=== PATIENT | female | born 1940 | race Caucasian/White ===

== ENCOUNTER 2016-11-07 04:52 | Inpatient (IN) | payer MEDICARE ==
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
--- NOTE | ~2016-11-07 | DS ---
Discharge Summary [facility] [address] [place]. [address] NAME: MARINA CAROLINA : 36 STATUS : DIS IN PAT#: [id number] AGE: 75 ADM/REG DATE : 11/07/16 MR#: [id number] REPORT SERV DATE: 11/19/16 DICTATED BY: MICHELLEMARINA Asif DATE: 11/19/16 REPORT STATUS : Draft TRANSCRIBED BY: MODL DATE: 11/19/16 Data Collection from hospitalization DISCHARGE DIAGNOSES: 1. Influenza A. 2. Probable pneumonia. 3. Reactive airway disease. 4. Hypertension. 5. Hypothyroidism. 6. Sleep apnea. 7. Fibromyalgia. 8. Obesity. 9. Mild hyponatremia. 10.History of skin cancer. CONSULTATION: None. PROCEDURES: CT scan of the brain without contrast, 11/07/2016. DISCHARGE MEDICATIONS: Norvasc 5 mg daily, Wellbutrin XL 300 mg at bedtime, Prozac 40 mg at bedtime, Synthroid 150 mcg daily, Prinivil 10 mg daily, Claritin 10 mg daily, Mag-Ox 400 mg daily, Lyrica 300 mg at bedtime, levofloxacin as instructed, Proventil 3 mL via inhaler every 4 hours as instructed, Tylenol 650 mg as needed, liquid tears 1 drop 3 times a day as needed, Robitussin 10 mL every 4 hours as needed, Proventil 3 mL via inhaler every 2 hours as needed, Advil 400 mg every 6 hours as needed, glucosamine 1 tablet daily, vitamin D one tablet daily, fish oil 1200 mg daily, Artificial Tears 1 drop three times a day as needed, ICaps one tablet at bedtime. Zanaflex 4 mg twice a day, Ambien 10 mg at bedtime, Tussin DM 10 mL every 6 hours as needed, face cream 1 application topically at bedtime as instructed, prednisone taper 30 mg for 1 day, then 20 mg for 2 days, then 10 mg for 3 days, then discontinue. CONDITION AT DISCHARGE: Stable. DISPOSITION: The patient was discharged to [facility] on a regular diet with activities as instructed. HOSPITAL COURSE: This is a 75-year-old female who was brought to the emergency room by EMS on the morning of this admission for frequent falls and pain in the back and shoulders as well as a fever. She suggested that she has been falling for several weeks and had felt bad for the past 2 days. On the day prior to this admission, she began to have a fever, she had a cough that was productive of green sputum. She had myalgias and shortness of breath, but no nausea or vomiting. She had no diarrhea. It sounds like her may have had a similar illness. She did not get an influenza vaccine this year, and we were presently in an epidemic flu season. She was admitted to the hospital at this time for further evaluation and treatment. Upon admission, creatinine level was 1.12, liver functions were normal, troponin was normal. Chest x-ray, had some elevation of the right hemidiaphragm. There was some concern of an Discharge Summary [address] [place]. [address] NAME: MARINA CAROLINA : 36 STATUS : DIS IN [facility]#: [id number] AGE: 75 ADM/REG DATE : 11/07/16 MR#: [id number] REPORT SERV DATE: 11/19/16 DICTATED BY: MARINA SELF DATE: 11/19/16 REPORT STATUS : Draft TRANSCRIBED BY: NUZHAT DATE: 11/19/16 infiltrate in the left base. The emergency room interpretation with possible infiltrates in the right base. CT scan of the brain without contrast was nonacute. A flu swab was positive for influenza A. She was started on Tamiflu. Levaquin was begun, cultures were obtained. The following day, she said she was feeling better. She still had quite a bit of wheezing. Aerosols and steroids thus were added to her regimen. On the , she said she was feeling slightly better. She still had coarse wheezes, creatinine level was 1.25, her abdomen was soft and nontender. On 11/10/2016, she continued to wheeze. She had been up sitting in a chair, but was nonambulatory. She had no fever. Creatinine was now 0.90. IV steroids were added. The next day, she was evaluated by Physical Therapy. She had less wheezing. She said she was feeling better. Discharge planning was performed. On 11/12/2016, discharge instructions were given. Due to her improved and stable condition, she was discharged to [facility] with the above-stated instructions. Information collected by: Kika Martinez I submit the above information as my discharge summary. TIAN/NUZHAT Marina Self M.D. / [id number]
[~2016-11-07 04:52] MED LIST: AMB10 PO; AMB5 PO; B COMPLETE OR; B/P PO; CLARIT10 PO; CLIMARA 0.1 MG0.1 MG TOP; CLIMARA0.1 MG TD; GLUCCHONDR PO; GLUCOSAMINEPO PO; IBU-200200 MG PO; LORTAB 5 PO; LYRICA150 MG PO; MAGOX4 PO; MG; MULTIPLE VIT PO; NORV5 PO; PCET; PRIN10 PO; PROZ10 PO; PROZAC40 MG PO; SYN.15 PO; VIT E; VITC500 PO; VITE PO; WELLXL150 PO; WELLXL300 PO; ZANAFLEX 4 MG TA4 MG PO; ZOL50 PO
[2016-11-07 05:06] LABS: ALLENS TEST Pos; BE (BASE EXCESS) -2.4 MEQ/L (0 +/- 2.5); CARBOXYHEMOGLOBIN 1.3 % (0-3); HEMOBLOGIN CONTENT 13.2 G/DL (12-16); INSTRUMENT SERIAL # 8087; METHEMOGLOBIN 0.3 % (0-3); O2 CONTENT 16.7 VOL% (18-24); OPERATOR ID 17537; PCO2 (CO2 TENSION) 32 MMHG (35-45); PO2 (O2 TENSION) 60 MMHG (79-93); SAMPLE Arterial; pH 7.43 (7.37-7.43)
[2016-11-07 05:25] LABS: BASOPHILS 0.1 %; BASOPHILS ABSOLUTE 0.01 10/3/uL (0.0-0.16); EOSINOPHILS 0 %; ER CBC TAT 0 Hrs 05 Mins; HEMATOCRIT 40.2 % (36.0-48.0); HEMOGLOBIN 13.1 g/dL (12.0-16.0); IMMATURE GRANULOCYTES 0.1 %; IMMATURE GRANULOCYTES ABSOLUTE 0.01 10/3/uL (0.0-0.11); LYMPHOCYTES 17.7 %; LYMPHOCYTES ABSOLUTE 1.27 10/3/uL (0.67-4.30); MEAN CORPUS HGB CONC 32.6 g/dL (32.0-36.0); MEAN CORPUSCULAR HEMOGLOB 27.2 pg (26.0-34.0); MEAN CORPUSCULAR VOLUME 83.6 fL (80-100); MEAN PLATELET VOLUME 9.8 fL (9.2-13.0); MONOCYTES 16.7 %; NEUTROPHILS 65.4 %; NEUTROPHILS ABSOLUTE 4.69 10/3/uL (2.02-8.40); PLATELET COUNT 173 10/3/uL (150-400); RBC DISTRIBUTION WIDTH 14.9 % (12.0-16.0); RED CELL COUNT 4.81 10/6/uL (4.0-5.6); WHITE BLOOD CELLS 7.2 10/3/uL (4.5-10.5)
[2016-11-07 05:26] LABS: MANUAL DIFF NO %
[2016-11-07 05:51] LABS: A/G RATIO 0.9 (0.7-1.9); ALBUMIN 3.6 G/DL (3.5-5.0); ALKALINE PHOSPHATASE 73 U/L (45-117); CALCIUM, SERUM 8.9 MG/DL (8.5-10.4); CHLORIDE, SERUM 98 MMOL/L (96-112); CO2 (CARBON DIOXIDE) 24 MMOL/L (24-34); CREATININE 1.12 MG/DL (0.55-1.02); GFR AFRICAN AMERICAN 55 ML/MIN (>=60); GFR NON AFRICAN AMERICAN 47 ML/MIN (>=60); GLOBULIN 4.1 G/DL (2.5-4.1); GLUCOSE, SERUM 96 MG/DL (60-99); POTASSIUM, SERUM 4.1 MMOL/L (3.5-5.3); SGOT(AST) 28 U/L (5-40); SGPT(ALT) 32 U/L (5-65); SODIUM, SERUM 133 MMOL/L (135-148); TOTAL PROTEIN 7.7 G/DL (6.0-8.5); TROPONIN I <0.02 NG/ML (<0.05)
[2016-11-07 05:52] LABS: INFLUENZA A SCREEN POSITIVE (NEGATIVE); INFLUENZA B SCREEN NEGATIVE (NEGATIVE)
[2016-11-07 05:52] LABS: BUN (BLOOD UREA NITROGEN) 14 MG/DL (6-23); TOTAL BILIRUBIN 0.4 MG/DL (0-1.2)
[2016-11-07] MEDS ORDERED: SYN.15 PO (09:47)
[2016-11-07] MEDS ORDERED: PROZAC40 MG PO (09:48)
[2016-11-07] MEDS ORDERED: WELLXL300 PO (09:48)
[2016-11-07] MEDS ORDERED: NORV5 PO (09:48)
[2016-11-07] MEDS ORDERED: PRIN10 PO (09:48)
[2016-11-07] MEDS ORDERED: MAGOX4 PO (09:49)
[2016-11-07] MEDS ORDERED: ADVIL PO (09:49)
[2016-11-07] MEDS ORDERED: GLUCOSAMINEPO PO (09:49)
[2016-11-07] MEDS ORDERED: FISH OIL1200 MG PO (09:50)
[2016-11-07] MEDS ORDERED: TEARS PURE OPH (09:50)
[2016-11-07] MEDS ORDERED: VITAMIN B PO (09:50)
[2016-11-07] MEDS ORDERED: CLARIT10 PO (09:50)
[2016-11-07] MEDS ORDERED: ZANAFLEX 4 MG TA4 MG PO (09:51)
[2016-11-07] MEDS ORDERED: ICAPS LUTEIN PO (09:51)
[2016-11-07] MEDS ORDERED: AMB10 PO (09:51)
[2016-11-07] MEDS ORDERED: [UNRECOGNIZED DRUG - REMARK] TOP (09:52)
[2016-11-07] MEDS ORDERED: TUSSIN DM PO (09:52)
[2016-11-07] MEDS ORDERED: LYRICA300 MG PO (09:52)
[2016-11-07 14:12] LABS: ALLENS TEST Pos; BE (BASE EXCESS) -1.1 MEQ/L (0 +/- 2.5); CARBOXYHEMOGLOBIN 1.2 % (0-3); DEVICE NC; HEMOBLOGIN CONTENT 13.8 G/DL (12-16); INSTRUMENT SERIAL # 8087; METHEMOGLOBIN 0.3 % (0-3); O2 CONTENT 18.7 VOL% (18-24); OPERATOR ID 30014; PCO2 (CO2 TENSION) 37 MMHG (35-45); PO2 (O2 TENSION) 93 MMHG (79-93); SAMPLE Arterial; pH 7.42 (7.37-7.43)
[2016-11-08 05:35] LABS: BASOPHILS 0 %; EOSINOPHILS 0 %; HEMATOCRIT 40.5 % (36.0-48.0); HEMOGLOBIN 13.3 g/dL (12.0-16.0); IMMATURE GRANULOCYTES 0.5 %; IMMATURE GRANULOCYTES ABSOLUTE 0.02 10/3/uL (0.0-0.11); LYMPHOCYTES 22.5 %; LYMPHOCYTES ABSOLUTE 0.97 10/3/uL (0.67-4.30); MEAN CORPUS HGB CONC 32.8 g/dL (32.0-36.0); MEAN CORPUSCULAR HEMOGLOB 27.7 pg (26.0-34.0); MEAN CORPUSCULAR VOLUME 84.2 fL (80-100); MEAN PLATELET VOLUME 9.8 fL (9.2-13.0); MONOCYTES ABSOLUTE 0.69 10/3/uL (0.21-1.20); NEUTROPHILS ABSOLUTE 2.64 10/3/uL (2.02-8.40); PLATELET COUNT 188 10/3/uL (150-400); RBC DISTRIBUTION WIDTH 14.7 % (12.0-16.0); RED CELL COUNT 4.81 10/6/uL (4.0-5.6)
[2016-11-08 05:44] LABS: MANUAL DIFF NO %; WHITE BLOOD CELLS 4.3 10/3/uL (4.5-10.5)
[2016-11-08 06:14] LABS: BUN (BLOOD UREA NITROGEN) 15 MG/DL (6-23); CALCIUM, SERUM 8.9 MG/DL (8.5-10.4); CHLORIDE, SERUM 101 MMOL/L (96-112); CO2 (CARBON DIOXIDE) 26 MMOL/L (24-34); CREATININE 1.25 MG/DL (0.55-1.02); GFR AFRICAN AMERICAN 48 ML/MIN (>=60); GFR NON AFRICAN AMERICAN 41 ML/MIN (>=60); POTASSIUM, SERUM 3.6 MMOL/L (3.5-5.3); SODIUM, SERUM 137 MMOL/L (135-148)
[2016-11-08 06:17] LABS: GLUCOSE, SERUM 118 MG/DL (60-99)
[2016-11-09 06:18] LABS: BASOPHILS 0 %; EOSINOPHILS 0 %; HEMATOCRIT 38.6 % (36.0-48.0); HEMOGLOBIN 12.8 g/dL (12.0-16.0); IMMATURE GRANULOCYTES 0.3 %; IMMATURE GRANULOCYTES ABSOLUTE 0.01 10/3/uL (0.0-0.11); LYMPHOCYTES 23.8 %; LYMPHOCYTES ABSOLUTE 0.95 10/3/uL (0.67-4.30); MEAN CORPUS HGB CONC 33.2 g/dL (32.0-36.0); MEAN CORPUSCULAR HEMOGLOB 27.7 pg (26.0-34.0); MEAN CORPUSCULAR VOLUME 83.5 fL (80-100); MEAN PLATELET VOLUME 9.7 fL (9.2-13.0); MONOCYTES ABSOLUTE 0.76 10/3/uL (0.21-1.20); NEUTROPHILS 56.9 %; NEUTROPHILS ABSOLUTE 2.28 10/3/uL (2.02-8.40); PLATELET COUNT 183 10/3/uL (150-400); RBC DISTRIBUTION WIDTH 14.6 % (12.0-16.0); RED CELL COUNT 4.62 10/6/uL (4.0-5.6)
[2016-11-09 06:19] LABS: MANUAL DIFF NO %
[2016-11-09 06:29] LABS: BUN (BLOOD UREA NITROGEN) 12 MG/DL (6-23); CALCIUM, SERUM 8.5 MG/DL (8.5-10.4); CHLORIDE, SERUM 99 MMOL/L (96-112); CO2 (CARBON DIOXIDE) 27 MMOL/L (24-34); GFR AFRICAN AMERICAN 71 ML/MIN (>=60); GFR NON AFRICAN AMERICAN 62 ML/MIN (>=60); GLUCOSE, SERUM 100 MG/DL (60-99); POTASSIUM, SERUM 3.7 MMOL/L (3.5-5.3); SODIUM, SERUM 135 MMOL/L (135-148)
[2016-11-09 10:31] LABS: MEMORIAL CHEMISTRY < 0.05
[2016-11-10 06:41] LABS: BASOPHILS 0.2 %; BASOPHILS ABSOLUTE 0.01 10/3/uL (0.0-0.16); EOSINOPHILS 0.4 %; EOSINOPHILS ABSOLUTE 0.02 10/3/uL (0.0-0.53); HEMATOCRIT 39.3 % (36.0-48.0); HEMOGLOBIN 12.9 g/dL (12.0-16.0); IMMATURE GRANULOCYTES 0.2 %; IMMATURE GRANULOCYTES ABSOLUTE 0.01 10/3/uL (0.0-0.11); LYMPHOCYTES 26.5 %; LYMPHOCYTES ABSOLUTE 1.47 10/3/uL (0.67-4.30); MEAN CORPUS HGB CONC 32.8 g/dL (32.0-36.0); MEAN CORPUSCULAR HEMOGLOB 27.5 pg (26.0-34.0); MEAN CORPUSCULAR VOLUME 83.8 fL (80-100); MEAN PLATELET VOLUME 9.9 fL (9.2-13.0); MONOCYTES 16.6 %; MONOCYTES ABSOLUTE 0.92 10/3/uL (0.21-1.20); NEUTROPHILS 56.1 %; NEUTROPHILS ABSOLUTE 3.11 10/3/uL (2.02-8.40); PLATELET COUNT 188 10/3/uL (150-400); RBC DISTRIBUTION WIDTH 14.7 % (12.0-16.0); RED CELL COUNT 4.69 10/6/uL (4.0-5.6); WHITE BLOOD CELLS 5.5 10/3/uL (4.5-10.5)
[2016-11-10 06:42] LABS: MANUAL DIFF NO %
[2016-11-10 06:57] LABS: A/G RATIO 0.8 (0.7-1.9); BUN (BLOOD UREA NITROGEN) 14 MG/DL (6-23); CALCIUM, SERUM 8.1 MG/DL (8.5-10.4); CHLORIDE, SERUM 98 MMOL/L (96-112); CO2 (CARBON DIOXIDE) 29 MMOL/L (24-34); CREATININE 1.03 MG/DL (0.55-1.02); GFR AFRICAN AMERICAN 61 ML/MIN (>=60); GFR NON AFRICAN AMERICAN 52 ML/MIN (>=60); GLOBULIN 3.6 G/DL (2.5-4.1); GLUCOSE, SERUM 85 MG/DL (60-99); POTASSIUM, SERUM 3.9 MMOL/L (3.5-5.3); SGOT(AST) 29 U/L (5-40); SGPT(ALT) 38 U/L (5-65); SODIUM, SERUM 136 MMOL/L (135-148); TOTAL BILIRUBIN 0.6 MG/DL (0-1.2); TOTAL PROTEIN 6.6 G/DL (6.0-8.5)
[2016-11-10 06:58] LABS: ALKALINE PHOSPHATASE 58 U/L (45-117)
[2016-11-11 06:29] LABS: BASOPHILS 0 %; EOSINOPHILS 0 %; HEMATOCRIT 40.1 % (36.0-48.0); HEMOGLOBIN 13.3 g/dL (12.0-16.0); IMMATURE GRANULOCYTES 0.7 %; IMMATURE GRANULOCYTES ABSOLUTE 0.02 10/3/uL (0.0-0.11); LYMPHOCYTES 17.7 %; LYMPHOCYTES ABSOLUTE 0.53 10/3/uL (0.67-4.30); MEAN CORPUS HGB CONC 33.2 g/dL (32.0-36.0); MEAN CORPUSCULAR HEMOGLOB 26.7 pg (26.0-34.0); MEAN PLATELET VOLUME 9.9 fL (9.2-13.0); MONOCYTES 5.7 %; MONOCYTES ABSOLUTE 0.17 10/3/uL (0.21-1.20); NEUTROPHILS 75.9 %; NEUTROPHILS ABSOLUTE 2.28 10/3/uL (2.02-8.40); PLATELET COUNT 213 10/3/uL (150-400); RBC DISTRIBUTION WIDTH 14.4 % (12.0-16.0); RED CELL COUNT 4.99 10/6/uL (4.0-5.6)
[2016-11-11 06:35] LABS: BUN (BLOOD UREA NITROGEN) 13 MG/DL (6-23); CALCIUM, SERUM 8.9 MG/DL (8.5-10.4); CHLORIDE, SERUM 95 MMOL/L (96-112); CO2 (CARBON DIOXIDE) 27 MMOL/L (24-34); CREATININE 0.93 MG/DL (0.55-1.02); GFR AFRICAN AMERICAN 69 ML/MIN (>=60); GFR NON AFRICAN AMERICAN 59 ML/MIN (>=60); POTASSIUM, SERUM 4.5 MMOL/L (3.5-5.3); SODIUM, SERUM 132 MMOL/L (135-148)
[2016-11-11 06:36] LABS: GLUCOSE, SERUM 159 MG/DL (60-99)
[2016-11-11 06:40] LABS: MANUAL DIFF NO %; MEAN CORPUSCULAR VOLUME 80.4 fL (80-100)
[2016-11-12 06:05] LABS: BASOPHILS 0.2 %; BASOPHILS ABSOLUTE 0.01 10/3/uL (0.0-0.16); EOSINOPHILS 0.2 %; EOSINOPHILS ABSOLUTE 0.01 10/3/uL (0.0-0.53); HEMATOCRIT 38.1 % (36.0-48.0); HEMOGLOBIN 12.8 g/dL (12.0-16.0); IMMATURE GRANULOCYTES 0.9 %; IMMATURE GRANULOCYTES ABSOLUTE 0.05 10/3/uL (0.0-0.11); LYMPHOCYTES 13.1 %; MEAN CORPUS HGB CONC 33.6 g/dL (32.0-36.0); MEAN CORPUSCULAR HEMOGLOB 27.8 pg (26.0-34.0); MEAN CORPUSCULAR VOLUME 82.6 fL (80-100); MEAN PLATELET VOLUME 9.5 fL (9.2-13.0); MONOCYTES 11.1 %; MONOCYTES ABSOLUTE 0.59 10/3/uL (0.21-1.20); NEUTROPHILS 74.5 %; NEUTROPHILS ABSOLUTE 3.97 10/3/uL (2.02-8.40); PLATELET COUNT 213 10/3/uL (150-400); RBC DISTRIBUTION WIDTH 14.4 % (12.0-16.0); RED CELL COUNT 4.61 10/6/uL (4.0-5.6)
[2016-11-12 06:08] LABS: MANUAL DIFF NO %; WHITE BLOOD CELLS 5.3 10/3/uL (4.5-10.5)
[2016-11-12 06:16] LABS: CALCIUM, SERUM 8.5 MG/DL (8.5-10.4); CHLORIDE, SERUM 99 MMOL/L (96-112); CO2 (CARBON DIOXIDE) 27 MMOL/L (24-34); CREATININE 1.02 MG/DL (0.55-1.02); GFR AFRICAN AMERICAN 61 ML/MIN (>=60); GFR NON AFRICAN AMERICAN 53 ML/MIN (>=60); GLUCOSE, SERUM 156 MG/DL (60-99); POTASSIUM, SERUM 4.3 MMOL/L (3.5-5.3); SODIUM, SERUM 134 MMOL/L (135-148)
[2016-11-12 06:17] LABS: BUN (BLOOD UREA NITROGEN) 18 MG/DL (6-23)
== END 2016-11-12 15:35 | DRG 194 ==
LOC: ER 04:52 → 5SO 07:46
PROVIDERS: Internal Medicine; Nurse Practitioner Acute Care
DX: J10.01 Influenza due to other identified influenza virus with the same other identified influenza virus pneumonia (principal); E87.1 Hypo-osmolality and hyponatremia; I10 Essential (primary) hypertension; E03.9 Hypothyroidism, unspecified; G47.33 Obstructive sleep apnea (adult) (pediatric); M79.7 Fibromyalgia; E66.9 Obesity, unspecified; R09.02 Hypoxemia; Z91.81 History of falling; Z96.643 Presence of artificial hip joint, bilateral; Z96.611 Presence of right artificial shoulder joint; Z85.828 Personal history of other malignant neoplasm of skin
CPT/HCPCS: 36600; 70450; 71010; 80048; 80053; 82805; 84484; 85025; 87040; 87070; 87205; 87804; 93005; 94640; 96374; 96375; 97161-GP; 99285; A9270-GY; G8978-CK-GP; G8979-CI-GP; J1956; J2920; J2930